=== PATIENT | female | born 1965 | race Caucasian/White ===

== ENCOUNTER 2018-09-28 17:13 | Emergency (ER) | payer OTHER ==
[~2018-09-28] VITALS: Ht 162.6 cm; Wt 83.9 kg
[~2018-09-28 17:13] MED LIST: AMITRIPTYLINE H10 MG PO; CURCUMIN1 GM PO; DEPO-PROVE150 MG/1 M IM; DULOXETINE HCL30 MG PO; HYDROCODON-ACE1 EA11 PO; HYDROMORPHONE HC2 MG PO; MAPAP500 M1 PO; MELOXICAM15 MG PO; METFORMIN HCL500 MG PO; METHOCARBAMOL500 MG PO; MIRALAX17 GM PO; OXYCODONE HCL5 MG PO; PROVENTIL HFA6.7 GM INH; SENNA LAX8.6 MG PO; VITAMIN D50000 UNI1 PO; XARELTO10 MG PO
== END 2018-09-28 19:09 | disposition home or self-care (01) ==
LOC: ED 17:13
DX: S70.01XA Contusion of right hip, initial encounter (principal); W10.9XXA Fall (on) (from) unspecified stairs and steps, initial encounter; J45.909 Unspecified asthma, uncomplicated; E11.9 Type 2 diabetes mellitus without complications; Z87.891 Personal history of nicotine dependence; Z88.8 Allergy status to other drugs, medicaments and biological substances; Z79.899 Other long term (current) drug therapy
CPT/HCPCS: 73502; 99283

== ENCOUNTER 2020-12-15 08:13 | Day surgery (SDC) | payer OTHER ==
[~2020-12-15] VITALS: Ht 162.6 cm; Wt 97.7 kg
[~2020-12-15 08:13] MED LIST changes: +ADIPEX-P37.5 M1 PO; +CLIMARA1 EAC2 TD; +GLUCOPHAGE500 MG PO; +PROMETRIUM200 MG PO
--- NOTE | 2020-12-15 12:27 | NUR ---
12/15/20 1227 Aby Sanchez 1217-PATIENT ARRIVED TO PACU ON 6L MASK RR EVEN PATIENT AWAKE DROWSY REPORTS PAIN 8/10 TO VAGINAL AREA REPORTS TOLERABLE 7/10 WILL MEDICATE PER EMAR. SR. IVF INFUSING. NO DRAINAGE NOTED. 1224-PATIENT AWAKE HOB ELEVATED SITTING UP. PLACED ON RA RR EVEN. DR SHER AT BEDSIDE TALKING TO PATIENT.
[2020-12-15] MEDS ORDERED: MOTRIN IB200 M1 PO (12:38)
--- NOTE | 2020-12-18 08:28 | OR ---
[facility] [address] [place], [place] [address] Signed DATE OF OPERATION: 12/15/2020 SURGEON: David Roman MD PREOPERATIVE DIAGNOSIS: Postmenopausal bleeding, probable endometrial polyps POSTOPERATIVE DIAGNOSIS: Postmenopausal bleeding, endometrial polyps, probable septate uterus. PROCEDURE: Hysteroscopy and resection of polyps. ANESTHESIA: MAC. ESTIMATED BLOOD LOSS: Minimal. DRAINS: None. INDICATIONS AND FINDINGS: The patient is a 55-year-old female, 2, para 1, VIP 1, who was admitted with a diagnosis of postmenopausal bleeding. Ultrasound was done which showed a thickened endometrial stripe. At the time of surgery, exam under anesthesia showed a normal size uterus without any adnexal masses. The uterus sounded to 9 cm. On hysteroscopy, there were a few small polyps, but also the appearance of a septate uterus. The remaining cavity appeared atrophic. DESCRIPTION OF PROCEDURE: The patient was prepped and draped in the dorsal lithotomy position. A weighted speculum was placed and the anterior lip of the cervix was visualized and grasped with a single-tooth tenaculum. The cavity was sounded to 9 cm. The endocervical canal was then dilated to a #8 dilator. The hysteroscope was then placed. Following this, the cavity was evaluated and a few small polyps identified. The MyoSure Lite was then introduced through the MyoSure device and the polyps removed without difficulty. There did appear to be a septation at the upper aspect of the uterus and both tubal orifices were identified. Following this, the procedure was complete. The instruments were removed. After removing the tenaculum, there was some ongoing bleeding from the Electronically Signed By: DAVID ROMAN MD 12/18/20 0828 PATIENT NAME: ANICETO VIERA OPERATIVE REPORT DATE OF : 69 REPORT #: [id number] PHYSICIAN: DAVID ROMAN MD PCP: ANA MARIA JULES PA-C REPORT IS CONFIDENTIAL AND NOT TO BE RELEASED WITHOUT AUTHORIZATION [facility] [address] [place], [place] [address] Signed tenaculum sites, which did not respond to pressure and a [id number] suture of 0 chromic was placed on each side with control of bleeding. The instruments then removed. The patient was taken to the recovery room in good condition. David Roman MD PJW/MODL /[id number] cc: Ana Maria Jules PA-C Copies: ~ Electronically Signed By: DAVID ROMAN MD 12/18/20 0828 PATIENT NAME: ANICETO VIERA OPERATIVE REPORT DATE OF : [birth year] REPORT #: [id number] PHYSICIAN: DAVID ROMAN MD PCP: ANA MARIA JULES PA-C REPORT IS CONFIDENTIAL AND NOT TO BE RELEASED WITHOUT AUTHORIZATION
--- NOTE | 2020-12-20 17:42 | PATH ---
[facility] [address] [place], [place] [address] Signed SPECIMEN(S): A ENDOMETRIAL TISSUE SPECIMEN SOURCE: A. ENDOMETRIAL TISSUE CLINICAL HISTORY: Hysteroscopy DC. Postmenopausal bleeding. FINAL PATHOLOGIC DIAGNOSIS: Endometrium, curettage: - Endometrium with cystic atrophy, focal weak proliferation, and metaplastic changes. - Fragments of myometrium with no histopathologic abnormality. - Negative for atypical hyperplasia or malignancy. COMMENT: Features are present which suggest the possibility of a benign adenomyomatous endometrial polyp. Clinical correlation required. As part of [facility]' Quality Improvement Program, this case was reviewed by another member of our pathology staff. NAL:GIANNAP:bg:C2NR MICROSCOPIC EXAMINATION: Histologic sections of all submitted blocks are examined by light microscopy. These findings, together with the gross examination, support the pathologic diagnosis. GROSS DESCRIPTION: The specimen, labeled "LM, endometrial tissue," is received in formalin and consists of irregular shaped, membranous, pink-bird tissue fragments that aggregate measure 3.0 x 1.2 x 0.3 cm. Specimen is entirely submitted in cassette (A1). JS (under the direct supervision of a pathologist) The Gross Description was prepared using a voice recognition system. The report was reviewed for accuracy; however, sound-alike word errors, addition and/or deletions may occur. If there is any question about this report, please contact Client Services. PERFORMING LABORATORY: The technical component was performed by [facility], [address] [place] [id number] (Dockmaster: Antoinette Saucedo MD; CLIA# [id number]). PATIENT NAME: ANICETO VIERA PATHOLOGY DATE OF : [birth year] REPORT #: [id number] PHYSICIAN: CHRISTIN PATHOLOGY PCP: KRISTEL RIDDLE PA-C REPORT IS CONFIDENTIAL AND NOT TO BE RELEASED WITHOUT AUTHORIZATION [facility] [address] [place], [place] [address] Signed Professional interpretation was performed by [facility], [address] [address] (CLIA# [id number]). Diagnostician: Romy Olivo MD Pathologist Electronically Signed 12/20/2020 Copies: ~ PATIENT NAME: ANICETO VIERA PATHOLOGY DATE OF : [birth year] REPORT #: [id number] PHYSICIAN: CHRISTIN ARNOLD PCP: KRISTEL RIDDLE PA-C REPORT IS CONFIDENTIAL AND NOT TO BE RELEASED WITHOUT AUTHORIZATION
== END 2020-12-15 12:55 | disposition home or self-care (01) ==
LOC: DS 08:13
PROVIDERS: ATTEND Obstetrics & Gynecology
PROC: 0UDB8ZX Extraction of Endometrium, Via Natural or Artificial Opening Endoscopic, Diagnostic (ICD-10-PCS; principal; 2020-12-15 10:30)
DX: N95.0 Postmenopausal bleeding (principal); N84.0 Polyp of corpus uteri; Z96.641 Presence of right artificial hip joint; Z79.890 Hormone replacement therapy; E11.9 Type 2 diabetes mellitus without complications; E66.9 Obesity, unspecified; M19.90 Unspecified osteoarthritis, unspecified site; J45.909 Unspecified asthma, uncomplicated
CPT/HCPCS: 00952; J0131; J0690; J1885; J2001; J2405; J2704; J2765; J3010; J7121

== ENCOUNTER 2021-02-07 11:00 | Day surgery (SDC) | payer OTHER ==
[~2021-02-07] VITALS: Ht 162.6 cm; Wt 91.0 kg
[~2021-02-07 11:00] MED LIST changes: +MOTRIN IB200 M1 PO
--- NOTE | 2021-02-07 12:17 | NUR ---
PATIENT BACK TO FLOOR MILTON RN TOOK REPORT 1135, THIS NURSE BACK TO FLOOR [facility] HANDED OFF REPORT. INTO ROOM PATIENT AWAKE AND EATING SNACKS AND DRINKING FLUID. RATES PAIN 0/10 ON PAIN SCALE. DRESSING C/D/I. STRONG PEDAL PULSE. CRYO IN PLACE. PATIENT REPORTS FULL FEELING SENSATION IN BOTH LEGS, SPINAL RESOLVED.
[2021-02-07] MEDS ORDERED: HYDROCODON-ACE1 EA11 PO (13:55)
[2021-02-07] MEDS ORDERED: DICLOFENAC SODI75 MG PO (13:55)
--- NOTE | 2021-02-07 13:58 | NUR ---
02/07/21 1358 Sheets,Brea 1352 PT ARRIVED TO PACU ON 6L VIA MASK, ORAL AIRWAY IN PLACE. RESP EVEN AND UNLABORED. VSS.
--- NOTE | 2021-02-07 15:03 | NUR ---
PATIENT REPORTS PAIN MEDICATION EFFECTIVE, RATES PAIN 3/10 ON PAIN SCALE. UP TO BATHROOM, APPEARS TO WOBBLE ONTO RIGHT KNEE. PATIENT REPORTS WITH HIP REPLACEMENT THIS IS A BASELINE AMBULATION. PATIENT VOIDED WELL, NOW BACK TO ROOM DRESSING AND PATIENT STATES " I AM READY TO GET OUT OF HERE" REMINDED PATIENT SHE COULD BE DISCHARGED AT 1520. PATIENT APPEARS CONTENT. CALL LIGHT WITHIN REACH.
--- NOTE | 2021-02-07 15:30 | NUR ---
PROVIDED PATIENT WITH DISCHARGE INSTRUCTION. ANSWERED QUESTIONS AND CONCERNS. VSS. DRESSING TO RIGHT KNEE C/D/I. STRONG PEDAL PULSE, WARM TOES. PROVIDED PATIENT WITH FRESH ICE PACK. PROVIDED WHEELCHAIR RIDE TO FRONT. PATINT TRANSFERED INTO LIFTED TRUCK WELL.
--- NOTE | 2021-02-11 07:27 | OR ---
[facility] [address] [place], [place] [address] Signed DATE OF OPERATION: 02/07/2021 SURGEON: Cortez Herring MD PREOPERATIVE DIAGNOSIS: Lateral meniscus tear, right knee. POSTOPERATIVE DIAGNOSIS: Lateral meniscus tear, right knee. PROCEDURE PERFORMED: Right knee arthroscopy with partial lateral meniscectomy. BULLET MAKER: None. ANESTHESIA: General. BLOOD LOSS: Minimal. BRIEF HISTORY: Aniceto is a 55-year-old female with pain and catching in her knee. 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 She was scheduled for a knee arthroscopy as well as a Synvisc injection. DESCRIPTION OF PROCEDURE: Once consent was obtained, she was taken to the operating room. After adequate anesthesia, the left leg was flexed, abducted, and externally rotated on a leg jeffries. The right was placed in a well-padded leg jeffries with no tourniquet. The portal sites were then preinjected using 0.25% Marcaine with epinephrine under alcohol prep. The knee was then prepped and draped in a standard sterile fashion. Standard inferolateral and superolateral portals were made and the scope was introduced in the knee. ARTHROSCOPIC FINDINGS: The knee showed a moderate synovitis throughout. No loose bodies were identified. Medial and lateral gutters were clear. The patella was tracking well with no significant chondromalacia. The medial compartment was intact. Lateral compartment showed a complex lateral meniscus tear with no chondromalacia. ACL and PCL were intact. Electronically Signed By: CORTEZ HERRING MD 02/11/21 0727 PATIENT NAME: ANICETO VIERA OPERATIVE REPORT DATE OF : 69 REPORT #: [id number] PHYSICIAN: CORTEZ HERRING MD PCP: KRISTEL RIDDLE PA-C REPORT IS CONFIDENTIAL AND NOT TO BE RELEASED WITHOUT AUTHORIZATION [facility] [address] [place] [id number] Signed DESCRIPTION OF OPERATION: Standard inferomedial portal was established after localizing using a spinal needle. The straight and curved biters were then used to trim the meniscus tear back to a stable rim. The debris was then evacuated using the shaver and the anterior and posterior portions of the meniscus were feathered out. The scope was then withdrawn. Again, no chondromalacia was found, so no Synvisc was injected at the end of the procedure. The portals were closed with 3-0 nylon and dressed with Adaptic, ABD, and Ashok wrap. She tolerated the procedure well. All sponge, needle, and instrument counts were correct. Cortez Herring MD BA/CRISTHIANL /[id number] Copies: ~ Electronically Signed By: CORTEZ HERRING MD 02/11/21 0727 PATIENT NAME: ANICETO VIERA OPERATIVE REPORT DATE OF : 69 REPORT #: [id number] PHYSICIAN: CORTEZ HERRING MD PCP: KRISTEL RIDDLE PA-C REPORT IS CONFIDENTIAL AND NOT TO BE RELEASED WITHOUT AUTHORIZATION
== END 2021-02-07 15:30 | disposition home or self-care (01) ==
LOC: DS 11:00
PROVIDERS: ATTEND Specialist
PROC: 0SBC4ZZ Excision of Right Knee Joint, Percutaneous Endoscopic Approach (ICD-10-PCS; principal; 2021-02-07 14:15)
DX: S83.271A Complex tear of lateral meniscus, current injury, right knee, initial encounter (principal); X58.XXXA Exposure to other specified factors, initial encounter; M17.11 Unilateral primary osteoarthritis, right knee; G89.18 Other acute postprocedural pain; J44.9 Chronic obstructive pulmonary disease, unspecified; E11.9 Type 2 diabetes mellitus without complications; F17.210 Nicotine dependence, cigarettes, uncomplicated; Z88.8 Allergy status to other drugs, medicaments and biological substances; Z79.84 Long term (current) use of oral hypoglycemic drugs
CPT/HCPCS: 01400; 64447; 76942; A9270; J0690; J1100; J1885; J2001; J2250; J2405; J2704; J2795; J3010; J7121; J7325

== ENCOUNTER 2024-10-20 06:45 | Day surgery (SDC) | payer OTHER ==
[2024-10-09 15:20] VITALS: BP 136/72
[~2024-10-20] VITALS: Ht 162.6 cm; Wt 90.9 kg
[~2024-10-20 06:45] MED LIST changes: +ALEVE220 M1 PO; +ALEVE220 MG PO; +AMITRIPTYLINE H25 MG PO; +AMLODIPINE BESYL5 MG PO; +ASPIRIN81 MG PO; +CEFUROXIME250 MG PO; +CLIMARA1 EAC1 TD; -CLIMARA1 EAC2 TD; +DICLOFENAC SODI75 MG PO; +DILAUDID2 MG PO; +DOTTI1 EAC1 TD; +HYDROmorphone HCL 2 MG TAB PO ONE; +KETOROLAC TROME10 MG PO; +LACTATED RINGER'S 1,000 ML IV SCH; +LIPITOR80 MG PO; +MONTELUKAST SOD10 MG PO; +NORTRIPTYLINE H25 MG PO; +NORVASC5 MG PO; +ONDANSETRON ODT4 MG PO; +PAROXETINE ER12.5 MG PO; +PLAVIX75 MG PO; +PROGESTERONE100 MG PO; +Ropivacaine HCl 20 MG/10 ML AMP ONE; +SINGULAIR10 MG PO; +TRELEGY ELLIPT1 EACH; +VITAMIN D21250 MCG PO; +VITAMIN D250 MCG PO; +XANAX0.5 MG PO
[2024-10-20] MEDS ORDERED: ondansetron HCL 4 MG TAB PO SCH (07:00)
[2024-10-20] MEDS ORDERED: IBLOOD GLUCOSE TEST STRIP 1 EA TEST VI PRN (07:00)
[2024-10-20] MEDS ORDERED: PANTOPRAZOLE SODIUM 40 MG TABEC PO SCH (07:00)
[2024-10-20] MEDS ORDERED: ROPIVACAINE IN 0.9% SOD CHL/PF 545 ML ELS.PMP.HR IRRIGATION SCH (07:00)
[2024-10-20] MEDS ORDERED: OXYCODONE HCL 5 MG TAB PO SCH (07:00)
[2024-10-20] MEDS ORDERED: CEFAZOLIN SODIUM 2 GM/20 ML SYR IV SCH ×2 (07:00→16:00)
[2024-10-20] MEDS ORDERED: LIDOCAINE HCL 1% 5 ML SDV INJ ONE (07:00)
[2024-10-20] MEDS ORDERED: TRANEXAMIC ACID IN NACL,ISO-OS 1,000 MG/100 ML PIGGYBACK IV SCH ×2 (07:00→12:00)
[2024-10-20] MEDS ORDERED: INTRA-ARTICULAR ANALGESIC INJECTION XX SCH (07:00)
[2024-10-20 07:10] VITALS: BP 128/66
[2024-10-20] MEDS ORDERED: SODIUM CHLORIDE 0.9% 40 ML IV ONE (07:29)
[2024-10-20] MEDS ORDERED: Ropivacaine HCl 0.5% 30 ML VIAL ONE (07:29)
[2024-10-20] MEDS ORDERED: DEXAMETHASONE SOD PHOS 4 MG/ML VIAL ONE ×2 (07:30→09:51)
[2024-10-20] MEDS ORDERED: dexmedeTOMIDine HCl 200 MCG/2 ML VIAL ONE (07:30)
[2024-10-20] MEDS ORDERED: MIDAZOLAM HCL 2 MG/2 ML VIAL ONE (07:30)
[2024-10-20] MEDS ORDERED: LIDOCAINE HCL 2% 5 ML SDV ONE ×2 (07:30→09:05)
[2024-10-20] MEDS ORDERED: propofoL 200 MG/20 ML VIAL ONE ×3 (07:30→10:48)
[2024-10-20] MEDS ORDERED: KETOROLAC TROMETHAMINE 30 MG/ML VIAL IV PRN (09:30)
[2024-10-20] MEDS ORDERED: HYDROmorphone HCL 4 MG TAB PO PRN (09:30)
[2024-10-20] MEDS ORDERED: OXYCODONE HCL 5 MG TAB PO PRN (09:30)
[2024-10-20] MEDS ORDERED: ondansetron HCL 4 MG/2 ML VIAL ONE (09:51)
[2024-10-20] MEDS ORDERED: SCOPOLAMINE 1 MG/3 DAYS PATCH 1 EACH TDSY ONE (09:51)
[2024-10-20] MEDS ORDERED: PHENYLEPHRINE HCL 10 MG/ML VIAL ONE (09:51)
[2024-10-20] MEDS ORDERED: GLYCOPYRROLATE 1 MG/5 ML MDV ONE (10:19)
[2024-10-20] MEDS ORDERED: DICLOFENAC SODI75 MG PO (11:04)
[2024-10-20] MEDS ORDERED: SENNA LAX8.6 MG PO (11:04)
[2024-10-20] MEDS ORDERED: HYDROMORPHONE HC4 MG PO (11:04)
[2024-10-20 11:37] VITALS: BP 104/40
--- NOTE | 2024-10-20 11:45 | NUR ---
10/20/24 1145 Shonna Wilkes 1112-PT ARRIVES TO PACU VIA STRETCHER, RESTING SEMI FOWLERS, PT A+OX4, PT DENIES PAIN OR NAUSEA, VSS ON RA, RR EVEN AND UNLABORED. 1115-PT SITTING UP IN BED EATING ICE CHIPS. 1125-MESS ATTENDANT CREW AT BEDSIDE FRO POST OP LT KNEE X-RAY. CRYO CUFF APPLIED. 1135-PT TAKEN BACK TO DAY SURGERY VIA STRETCHER, BEDSIDE REPORT GIVEN TO RN, ALL QUESTIONS ANSWERED. PT TALKING W/ STAFF, DENIES MAUSEA BUT C/O SORENESS IN LT KNEE. VSS ON RA.
[2024-10-20] MEDS ORDERED: ONDANSETRON ODT8 MG PO (12:08)
[2024-10-20 13:08] VITALS: BP 124/64
--- NOTE | 2024-10-20 14:30 | NUR ---
PT GETTING DRESSED AT THIS TIME. SEBLE RN/PT DAUGHTER IN PT ROOM TO ASSIST AT THIS TIME. CALL LIGHT WITHIN REACH.
[2024-10-20 14:45] VITALS: BP 122/50
--- NOTE | 2024-10-20 14:45 | NUR ---
PT IN ROOM FOR DC EDUCATION AT THIS TIME. PT STATES VERBAL UNDERSTANDING AND NO FURTHER QUESTIONS OR NEEDS. PT OFF OF UNIT VIA WC TO PASSENGER SIDE OF VEHICLE AND SAFELY STAND/PIVOTS TO PASSENGER SIDE. ALL BELONGINGS IN PT POSSESSION @1124.
[2024-10-20] MEDS ORDERED: ACETAMINOPHEN 500 MG TAB PO SCH (15:00)
[2024-10-20] MEDS ORDERED: SENNOSIDES 1 TAB PO SCH (21:00)
[2024-10-21] MEDS ORDERED: DICLOFENAC SOD 75 MG TABEC PO SCH (08:00)
--- NOTE | 2024-10-21 11:35 | NUR ---
PT ARRIVES TO DS FROM PACU VIA STRETCHER. PT REPORTS PAIN TOLERABLE AT 7/10 AT THIS TIME. PT IS A&O AND ASKING QUESTIONS APPROPRIATELY. PT TOLERATING ICE CHIPS AND NO NAUSEA AT THIS TIME. DRESSING C/D/I. REPORT RECEIVED FROM VINNY BURT. CALL LIGHT WITHIN REACH.
--- NOTE | 2024-10-21 13:10 | NUR ---
FLOYD W/PHYSICAL THERAPY IN ROOM W/PT AT THIS TIME. SPINAL RESOLVED. ALL SENSATION INTACT.
--- NOTE | 2024-10-21 13:23 | OR ---
[facility] [address] [place], [place] [address] Signed DATE OF OPERATION: 10/20/2024 SURGEON: Cortez Herring MD PREOPERATIVE DIAGNOSIS: Severe degenerative joint disease, left knee. POSTOPERATIVE DIAGNOSIS: Severe degenerative joint disease, left knee. PROCEDURE PERFORMED: Left total knee arthroplasty. COMMUNITY ORGANIZATION WORKER: Ciarra Rubio PA-C. Ciarra was present and critical for all portions of procedure. ANESTHESIA: Spinal. BLOOD LOSS: 200 mL. IMPLANTS: Ariadna Triathlon size 3, 11 mm polyethylene and 29 patella. BRIEF HISTORY: Aniceto is a 59-year-old female with significant arthritis in both knees. She had undergone prior right total knee and wished to proceed with the left. Risks, benefits, and alternatives were discussed and she understands, wishes to proceed. DESCRIPTION OF PROCEDURE: Once consent was obtained, she was taken to the operating room. After adequate anesthesia, she was placed on the operating room table with a hip bump. The leg was then prepped and draped in a standard sterile fashion. Standard anterior midline incision was carried through the skin and subcutaneous tissue. Skin flaps were developed medially and laterally. Low midvastus arthrotomy was performed and infrapatellar fat pad was excised. The MCL was elevated as a sleeve around the mid medial joint line. The anterior horns of the menisci were transected as was the ACL. PCL was found to be intact. The navigation computer arrays were placed in the distal Electronically Signed By: CORTEZ HERRING MD 10/21/24 1323 PATIENT NAME: ANICETO VIERA OPERATIVE REPORT DATE OF : 69 REPORT #: [id number] PHYSICIAN: CORTEZ HERRING MD PCP: ZEINA ESQUEDA REPORT IS CONFIDENTIAL AND NOT TO BE RELEASED WITHOUT AUTHORIZATION [facility] [address] [place], [place] [address] Signed femur and proximal tibia. The leg was then registered with computer followed by the fine anatomic points of the knee. The varus valgus poses were undertaken and slight valgus was added to the tibial component. Once this was completed, the robot was brought in and the four straight cuts and two angle cuts were made with care taken to protect the patellar tendon and MCL. The bony remnants were removed. Osteophytes were removed. Small osteophytes were removed off the posterior femur, but no release was performed. The trials were then positioned. Knee was taken through range of motion and found to be stable from 0 to 100 degrees. Patellar tracking was good. The patella was then cut sized and drilled for a 29 patella. The distal femoral drill holes were completed and the proximal tibia was finished using the keel punch followed by the drill guide. The components were obtained. The tibia was impacted into position first followed by the polyethylene. The femur was then impacted until it was well seated. The knee was extended and loaded. The patella was then clamped into position and seated and flushed with the bone. The patellar tracking was again checked, found to be good. The periarticular soft tissues were injected with 100 mL of ropivacaine and Toradol mixture. The On-Q pain pump was percutaneously placed into the adductor canal from the suprapatellar pouch. The arthrotomy was then closed using a combination of #2 FiberWire and #2 Stratafix, subcutaneous tissue with 0 Stratafix and skin with 3-0. The wound was sealed with LiquiBand and Steri-Strips, dressed with an Acticoat-7 dressing, ABD, and Ashok wrap. She tolerated the procedure well. All sponge, needle, and instrument counts were correct. Cortez Herring MD BA/MODL /[id number] Copies: ~ Electronically Signed By: CORTEZ HERRING MD 10/21/24 1323 PATIENT NAME: ANICETO VIERA OPERATIVE REPORT DATE OF : 69 REPORT #: [id number] PHYSICIAN: CORTEZ HERRING MD PCP: ZEINA ESQUEDA REPORT IS CONFIDENTIAL AND NOT TO BE RELEASED WITHOUT AUTHORIZATION
--- NOTE | 2024-10-21 13:30 | NUR ---
PT BACK FROM PHYSICAL THERAPY, PT REPORTS PAIN INCREASE TO 9/10, PRN MED GIVEN (SEE EMAR). TXA STARTED. PT RESTING IN BED W/CALL LIGHT WITHIN REACH. PT REPORTS NO NEEDS OR QUESTIONS AT THIS TIME.
--- NOTE | 2024-10-21 14:15 | NUR ---
IN PT ROOM, PT STATES PAIN IMPROVING TO TOLERABLE LEVEL. JOI LAGOS CALLED AND UPDATED ON PT CONDITION. VO RECEIVED FOR PT DISCHARGE AND TO START PLAVIX TOMORROW. PT STATES VERBAL UNDERSTANDING. CALL LIGHT WITHIN REACH, PT STATES NO FURTHER NEEDS OR QUESTIONS AT THIS TIME. PT TO RESTROOM FOR URINE VOID. PT STATES PAIN REMAINS AT TOLERABLE LEVEL, NO NEW DRAINAGE EVIDENT POST AMBULATION.
== END 2024-10-20 15:10 | disposition home or self-care (01) ==
LOC: DS 06:45
PROVIDERS: ATTEND Specialist
PROC: 0SRD0JZ Replacement of Left Knee Joint with Synthetic Substitute, Open Approach (ICD-10-PCS; principal; 2024-10-20 09:45)
DX: M17.12 Unilateral primary osteoarthritis, left knee (principal); J44.9 Chronic obstructive pulmonary disease, unspecified; E11.9 Type 2 diabetes mellitus without complications; F17.200 Nicotine dependence, unspecified, uncomplicated; Z79.899 Other long term (current) drug therapy; Z88.8 Allergy status to other drugs, medicaments and biological substances
CPT/HCPCS: 01400; 64447; 64450; 64454; 73560; 76942; 97161; 97530; A9270; C1713; C1776; J0690; J1100; J2003; J2250; J2371; J2405; J2704; J2795; J7121; J7999

== ENCOUNTER 2025-01-05 14:22 | Emergency (ER) | payer OTHER ==
[~2025-01-05] VITALS: Ht 162.6 cm; Wt 88.0 kg
[~2025-01-05 14:22] MED LIST changes: +HYDROMORPHONE HC4 MG PO; -HYDROmorphone HCL 2 MG TAB PO ONE; -LACTATED RINGER'S 1,000 ML IV SCH; +ONDANSETRON ODT8 MG PO; -Ropivacaine HCl 20 MG/10 ML AMP ONE
[2025-01-05] MEDS ORDERED: ALBUTEROL/IPRATROPIUM 3 ML NEB INH ONE (14:45)
[2025-01-05] MEDS ORDERED: PREDNISONE20 MG PO (17:13)
[2025-01-05] MEDS ORDERED: ZITHROMAX250 MG PO (17:13)
[2025-01-05 17:15] VITALS: BP 137/68
== END 2025-01-05 17:15 | disposition home or self-care (01) ==
LOC: ED 14:22
DX: J44.1 Chronic obstructive pulmonary disease with (acute) exacerbation (principal); E11.9 Type 2 diabetes mellitus without complications; J45.909 Unspecified asthma, uncomplicated; F17.200 Nicotine dependence, unspecified, uncomplicated; Z79.51 Long term (current) use of inhaled steroids; Z79.84 Long term (current) use of oral hypoglycemic drugs; Z79.82 Long term (current) use of aspirin; Z79.899 Other long term (current) drug therapy; Z88.8 Allergy status to other drugs, medicaments and biological substances
CPT/HCPCS: 71045; 94640; 99285-25

== ENCOUNTER 2025-02-02 06:40 | Day surgery (SDC) | payer OTHER ==
[2025-01-27 14:24] VITALS: BP 116/48
[~2025-02-02] VITALS: Ht 162.6 cm; Wt 90.9 kg
[~2025-02-02 06:40] MED LIST changes: +FLONASE SENSIM5.9 ML NS; +LACTATED RINGER'S 1,000 ML IV SCH; +PREDNISONE20 MG PO; +ZITHROMAX250 MG PO
[2025-02-02 06:57] VITALS: BP 137/71
[2025-02-02] MEDS ORDERED: INTRA-ARTICULAR ANALGESIC INJECTION XX SCH (07:00)
[2025-02-02] MEDS ORDERED: CEFAZOLIN SODIUM 2 GM/20 ML SYR IV SCH ×2 (07:00→18:00)
[2025-02-02] MEDS ORDERED: LIDOCAINE HCL 1% 5 ML SDV INJ ONE (07:00)
[2025-02-02] MEDS ORDERED: IBLOOD GLUCOSE TEST STRIP 1 EA TEST VI PRN ×2 (07:00→11:15)
[2025-02-02] MEDS ORDERED: OXYCODONE HCL 5 MG TAB PO SCH (07:00)
[2025-02-02] MEDS ORDERED: GABAPENTIN 600 MG TAB PO SCH (07:00)
[2025-02-02] MEDS ORDERED: ondansetron HCL 4 MG TAB PO SCH (07:00)
[2025-02-02] MEDS ORDERED: PANTOPRAZOLE SODIUM 40 MG TABEC PO SCH (07:00)
[2025-02-02] MEDS ORDERED: TRANEXAMIC ACID IN NACL,ISO-OS 1,000 MG/100 ML PIGGYBACK IV SCH ×2 (07:00→14:00)
[2025-02-02] MEDS ORDERED: ZYRTEC10 M3 PO (07:05)
--- NOTE | 2025-02-02 07:29 | NUR ---
VISITED DURING SPIRITUAL CARE ROUNDS. PT IN OVERALL GOOD SPIRITS. NO IMMEDIATE NEEDS. PERSONNEL ARBITRATOR PROVIDED SUPPORTIVE PRESENCE, HOSPITALTIY, PRAYER, FACILITATED INTERACTION WITH THERAPY ANIMAL. PT EXPRESSED GRATITUDE.
[2025-02-02] MEDS ORDERED: HYDROmorphone HCL 2 MG TAB PO SCH (07:31)
[2025-02-02] MEDS ORDERED: BUPIVACAINE HCL 0.5% 30 ML VIAL ONE (08:42)
[2025-02-02] MEDS ORDERED: propofoL 200 MG/20 ML VIAL ONE ×2 (08:42→10:55)
[2025-02-02] MEDS ORDERED: MIDAZOLAM HCL 2 MG/2 ML VIAL ONE (08:43)
[2025-02-02] MEDS ORDERED: fentaNYL citrate 100 MCG/2 ML VIAL ONE (08:43)
[2025-02-02] MEDS ORDERED: ondansetron HCL 4 MG/2 ML VIAL ONE (08:44)
[2025-02-02] MEDS ORDERED: DEXAMETHASONE SOD PHOS 4 MG/ML VIAL ONE (08:44)
[2025-02-02] MEDS ORDERED: LIDOCAINE HCL 2% 5 ML SDV ONE (08:54)
[2025-02-02] MEDS ORDERED: PHENYLEPHRINE HCL 10 MG/ML VIAL ONE (09:02)
[2025-02-02] MEDS ORDERED: ACETAMINOPHEN 1,000 MG/100 ML VIAL ONE (10:55)
[2025-02-02] MEDS ORDERED: TRANEXAMIC ACID 1,000 MG/10 ML AMP ONE (10:56)
[2025-02-02] MEDS ORDERED: ondansetron HCL 4 MG/2 ML VIAL IV PRN (11:15)
[2025-02-02] MEDS ORDERED: KETOROLAC TROMETHAMINE 30 MG/ML VIAL IV PRN (11:15)
[2025-02-02] MEDS ORDERED: HYDROmorphone HCL 1 MG/ML SYR IV PRN (11:15)
[2025-02-02] MEDS ORDERED: fentaNYL citrate 50 MCG/ML SDV IV PRN (11:15)
[2025-02-02] MEDS ORDERED: NALOXONE HCL 0.4 MG SYR IV PRN (11:15)
[2025-02-02] MEDS ORDERED: HYDROmorphone HCL 2 MG TAB PO PRN (11:30)
[2025-02-02] MEDS ORDERED: CEFUROXIME250 MG PO (11:36)
[2025-02-02] MEDS ORDERED: SENNA LAX8.6 MG PO (11:37)
[2025-02-02] MEDS ORDERED: ACETAMINOPHEN500 MG PO (11:37)
[2025-02-02] MEDS ORDERED: HYDROMORPHONE HC2 MG PO (11:37)
--- NOTE | 2025-02-02 11:53 | NUR ---
02/02/25 1153 Shonna Wilkes 1132-PT ARRIVES TO PACU, VIA STRETCHER, RESTING SEMI FOWLERS, PT A+OX4 DENIES PAIN OR NAUSEA, VSS ON RA. CRYO CUFF APPLIED TO LT HIP PER ORDER. 1140-PT SITTING UP IN BED SIPPING ON WATER. 1142-CASINO FLOORPERSON AT BEDSIDE FOR POST OP LT HIP X-RAY.
[2025-02-02 12:05] VITALS: BP 106/46
--- NOTE | 2025-02-02 12:24 | NUR ---
1205- PT ARRIVES TO DAY SURGERY FROM PACU. VITAL SIGNS OBTAINED. SURGICAL SITE ASSESSD HILARIO CASILLAS RN. BED IS LOCKED IN THE LOWEST POSITION WITH CALL LIGHT IN REACH. PT REQUESTS TURKEY SANDWICH AND A DIET SODA. PT IS ALERT AND ORIENTED. PT REPORTS NUMBNESS FROM THE KNEES DOWN, BUT REPORTS THAT HAS BEEN NORMAL AFTER HER TWO KNEE SURGERIES, ALTHOUGH IS FEELING THE BED BOARD WITH HER TOES, BUT HER MOVEMENTS ON THAT SIDE ARE WEAKER. PT USES INCENTIVE SPIROMETER. PT IS AWARE OF DISCHARGE CRITERIA AND IS UNDERSTANDING.
[2025-02-02 13:01] VITALS: BP 110/52
--- NOTE | 2025-02-02 13:05 | NUR ---
1305- VITAL SIGNS OBTAINED. PT IS SITTING UP AND WATCHING TV. CALL LIGHT IN REACH. BED IS LOCKED IN THE LOWEST POSITION. LUNCH WAS BROUGHT TO PT BY DIETARY SERVICES. SURGICAL SITE IS CDI. PT SPINAL IS MEASURED ABOUT AT THE KNEES. PT REORTS 3/10 PAIN THAT IS TOLERABLE AND NO NAUSEA.
[2025-02-02 14:15] VITALS: BP 129/53
--- NOTE | 2025-02-02 14:18 | NUR ---
1415- PT IS RESTING WITH EYES CLOSED. PT REPORTS THAT PAIN IS 6/10 AND WOULD LIKE SOMETHING. PT DENIES NAUSEA. SPINAL HAS RESOLVED. PT URINATED 100ML AT 1335. CALL LIGHT IN REACH. SURGICAL SITE IS CDI. PT TO PASS PT. PT USED INCENTIVE SPIROMETER.
--- NOTE | 2025-02-02 14:59 | NUR ---
1426- PT REPORTS 6/10 PAIN AND WOULD LIKE PAIN MEDICATION. DILAUDID GIVEN, SEE EMAR. TXA STARTED, SEE EMAR. 1450- PT REPORTS NEEDING TO USE THE RESTROOM. PT IS SALINE LOCKED AT THIS TIME. PT IS ABLE TO STAND AND PIVOT WITH THE USE OF A FWW TO BEDSIDE COMMODE. PT IS ABLE TO URINATE A LARGE AMOUNT OF CLEAR, YELLOW URINE.
[2025-02-02] MEDS ORDERED: ACETAMINOPHEN 500 MG TAB PO SCH (15:00)
--- NOTE | 2025-02-02 15:09 | NUR ---
1510- PHYSICAL THERAPY IS IN TALKING AND WORKING WITH THE PT AT THIS TIME.
[2025-02-02 15:39] VITALS: BP 118/49
--- NOTE | 2025-02-02 15:42 | NUR ---
1540- PT RETURNS FROM PHYSICAL THERPAY. PT DENIES NAUSEA BUT REPORTS 8/10 PAIN. VITAL SIGNS OBTAINED. SURGICAL SITE IS CDI. PT RESTING AND DRESSED FROM THE WAIST DOWN. PT WATING TV
--- NOTE | 2025-02-02 15:56 | NUR ---
1550- DR. TAMEZ CALLED AND VERBAL ORDER 2MG OF DILAUDID PO FOR PT HAVING 04/05 PT. 1559- DILAUDID GIVEN, SEE EMAR.
[2025-02-02] MEDS ORDERED: HYDROmorphone HCL 2 MG TAB PO ONE (16:00)
--- NOTE | 2025-02-02 17:19 | NUR ---
1649- PT GETTING DRESSED WITH JAVED ROJAS. IV REMOVED. 1657- DISCHARGE CRITERIA GONE OVER. PT REPORTS 4/10 PAIN AND DENIES NAUSEA. PT REPORTS PAIN IS TOLERABLE. QUESTIONS AND CONCERNS ANSWERED. PT HAS ALL BELONGINGS AND IS ABLE TO AMBULATE WITH FWW TO WHEELCHAIR WITH STAND BY ASSIST. PT DC FROM DAY SURGERY AT THIS TIME.
[2025-02-02] MEDS ORDERED: SENNOSIDES 1 TAB PO SCH (21:00)
[2025-02-03] MEDS ORDERED: cefuroxime axetiL 250 MG TAB PO SCH (09:00)
--- NOTE | 2025-02-06 06:55 | OR ---
[facility] [address] [place], [place] [address] Signed DATE OF OPERATION: 02/02/2025 SURGEON: Cortez Herring MD PREOPERATIVE DIAGNOSIS: Hip degenerative joint disease left. POSTOPERATIVE DIAGNOSIS: Hip degenerative joint disease left. PROCEDURE PERFORMED: Left total hip arthroplasty with Thad. PRESALES CONSULTANT: Ciarra Rubio PA-C. Ciarra was present and critical for all portions of procedure. ANESTHESIA: Spinal. BLOOD LOSS: 200 mL. IMPLANTS: Size 6 Secur-Fit stem with a 50 mm cup and a +0 head. BRIEF HISTORY: Aniceto is a 59-year-old female with left hip pain. She had previous right total hip with good results. Risks, benefits, and alternatives of surgery were discussed with her and she elected to proceed. DESCRIPTION OF PROCEDURE: Once consent was obtained, she was taken to the operating room. After adequate anesthesia, she was placed in the right lateral decubitus position. All downside pressure points were well padded. An axillary roll was placed. The leg was then prepped and draped in a standard sterile fashion. The computer array for the Thad system was then placed in the posterior iliac crest 3 fingerbreadths posterior to the ASIS. The hip was then approached through standard anterolateral approach, carried through skin and subcutaneous tissue. The IT band was divided longitudinally. The vastus lateralis was divided from the tip of the trochanter distally along the anterior Electronically Signed By: CORTEZ HERRING MD 02/06/25 0655 PATIENT NAME: ANICETO VIERA OPERATIVE REPORT DATE OF : 69 REPORT #: [id number] PHYSICIAN: CORTEZ HERRING MD PCP: KRISTOFER REID PAC REPORT IS CONFIDENTIAL AND NOT TO BE RELEASED WITHOUT AUTHORIZATION [facility] [address] [place], [place] [address] Signed margin of the femur. The gluteus medius and capsule were then split from the tip of the trochanter to the acetabular rim. This was then peeled off the anterior femoral neck around the level of the lesser trochanter. The leg was registered with the computer for length measurement. The hip was then dislocated and the femoral neck cut made 1 fingerbreadth above the lesser trochanter. The head was then passed off the table. The periacetabular soft tissue was removed. The fine anatomic points of the acetabulum were registered with the computer. The robot was then brought in and the acetabulum was reamed at 50. This was done in a single pass reaming. Once this was completed, the cup was obtained and the cup was impacted in 20 degrees of anteversion and 40 degrees of abduction. The screw holes were placed in the posterior superior quadrant and three screws were placed with appropriate length screws. The liner was then impacted in position. Attention was then turned to proximal femur. This was opened using a Localmint cutter, followed by the Montse awl. The femur was then reamed to a 7, 8, and broached to a 6. The 6 was quite tight fit and I did want to go too much bigger. We left it in position with a high offset neck. Initially, we trialed with a -2.5 and then 0 and this was found to be good with good leg lengths. The hip was dislocated and the trials were removed. The final stem was impacted until it was well seated and tight. The +0 head was then impacted onto it after cleaning the trunnion. The hip was reduced and again taken through range of motion. Leg lengths found to be equal. The hip was quite stable. The wound was copiously irrigated with Surgiphor followed by normal saline. The capsule was then closed using #2 FiberWire. The vastus and IT band layers were closed independently using #2 Stratafix. Subcutaneous tissue was closed with 2-0 Vicryl and 0 Stratafix and skin was closed with 3-0 Stratafix. The wound was then sealed with LiquiBand, Steri-Strips and dressed with an Acticoat-7 dressing. The patient was awakened, taken to the recovery room in satisfactory condition. All sponge, needle, and instrument counts were correct. Cortez Herring MD BA/MODL /[id number] Electronically Signed By: CORTEZ HERRING MD 02/06/25 0655 PATIENT NAME: ANICETO VIERA OPERATIVE REPORT DATE OF : 69 REPORT #: [id number] PHYSICIAN: CORTEZ HERRING MD PCP: KRISTOFER REID PAC REPORT IS CONFIDENTIAL AND NOT TO BE RELEASED WITHOUT AUTHORIZATION [address] [address] Signed Copies: ~ Electronically Signed By: CORTEZ HERRING MD 02/06/25 0655 PATIENT NAME: MAXIMILIANOANICETO JO OPERATIVE REPORT DATE OF : 69 REPORT #: [id number] PHYSICIAN: CORTEZ HERRING MD PCP: KRISTOFER REID PAC REPORT IS CONFIDENTIAL AND NOT TO BE RELEASED WITHOUT AUTHORIZATION
== END 2025-02-02 16:58 | disposition home or self-care (01) ==
LOC: DS 06:40
PROVIDERS: ATTEND Specialist
PROC: 0SRB0JA Replacement of Left Hip Joint with Synthetic Substitute, Uncemented, Open Approach (ICD-10-PCS; principal; 2025-02-02 09:15)
DX: M16.12 Unilateral primary osteoarthritis, left hip (principal); F17.200 Nicotine dependence, unspecified, uncomplicated; Z88.8 Allergy status to other drugs, medicaments and biological substances; Z79.899 Other long term (current) drug therapy; Z79.84 Long term (current) use of oral hypoglycemic drugs
CPT/HCPCS: 01214; 72170; 97161; 97530; A9270; C1713; C1776; J0131; J0690; J1100; J2003; J2250; J2371; J2405; J2704; J3010; J7121

== ENCOUNTER 2025-06-11 19:06 | Emergency (ER) | payer OTHER ==
[~2025-06-11] VITALS: Ht 162.6 cm; Wt 89.3 kg
[~2025-06-11 19:06] MED LIST changes: +ACETAMINOPHEN500 MG PO; -LACTATED RINGER'S 1,000 ML IV SCH; +ZYRTEC10 M3 PO
[2025-06-11] MEDS ORDERED: ALBUTEROL/IPRATROPIUM 3 ML NEB INH PRN (19:30)
[2025-06-11 19:41] LABS: BASOPHILS 0.3 % (0.1-1.2); EOSINOPHILS 0.9 % (0.7-5.8); LYMPHOCYTES 18.6 % (19.3-51.7); MCH 30.3 PG (25.6-32.2); MCHC 33.1 g/dL (32.2-35.5); MCV 91.4 fL (79.4-94.8); MONOCYTES 5.8 % (4.7-12.5); NEUTROPHILS 74.0 % (34.0-71.1); RBC 5.38 M/uL (3.93-5.22)
[2025-06-11] MEDS ORDERED: ALBUTEROL SULFATE 0.5% 2.5 MG/0.5 ML VIAL ONE (19:45)
[2025-06-11] MEDS ORDERED: BUDESONIDE 0.5 MG/2 ML VIAL ONE (19:45)
[2025-06-11] MEDS ORDERED: ALBUTEROL SULFATE 0.5% 2.5 MG/0.5 ML VIAL INH ONE (20:00)
[2025-06-11] MEDS ORDERED: BUDESONIDE 0.5 MG/2 ML VIAL INH ONE (20:00)
[2025-06-11 20:02] LABS: ALT (SGPT) 35.0 U/L (14-59); AST (SGOT) 13.0 U/L (15-37); GLOMERULAR FILTRATION RATE,EST 100.0 mL/min (>60); PROTEIN, TOTAL 7.6 g/dL (6.4-8.2); UREA NITROGEN 12.0 mg/dL (7-18)
[2025-06-11 20:50] LABS: INFLUENZA B NAA NEGATIVE (NEGATIVE); RESPIRATORY SYNCYTIAL VIR NAA NEGATIVE (NEGATIVE)
[2025-06-11] MEDS ORDERED: PREDNISONE20 MG PO (21:43)
[2025-06-11] MEDS ORDERED: LEVOFLOXACIN750 MG PO (21:43)
[2025-06-11] MEDS ORDERED: IPRAT-ALBUT 0.5-3 ML INH (21:43)
[2025-06-11 22:50] VITALS: BP 154/60
== END 2025-06-11 21:55 | disposition home or self-care (01) ==
LOC: ED 19:06
PROVIDERS: Family Medicine
DX: J44.1 Chronic obstructive pulmonary disease with (acute) exacerbation (principal); E11.9 Type 2 diabetes mellitus without complications; F17.200 Nicotine dependence, unspecified, uncomplicated; Z88.8 Allergy status to other drugs, medicaments and biological substances; Z79.84 Long term (current) use of oral hypoglycemic drugs; Z79.899 Other long term (current) drug therapy
CPT/HCPCS: 36415; 71045; 80053; 83735; 83880; 84484; 85025; 87502; 94640; 96374; 99285-25; J2919; U0002